=== PATIENT | female | born 1980 | race Caucasian/White ===

== ENCOUNTER → 2017-01-08 | Outpatient (CLI) | payer BC ==
--- NOTE | 2017-01-08 14:34 | RAD ---
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 Patient had seroma after surgery. She presents with brownish discharge from left nipple for last few days. COMPARISON: Mammograms from 2016, 2015 and 2013. This study was interpreted with the benefit of Computerized Aided Detection (CAD). FINDINGS: Breast Density: HETERO The breast parenchyma Is heterogeneiously dense, which could reduce sensitivity of mammography. Breast parenchyma level C. Retraction of bilateral nipples noted. Skin is within normal limits. Right breast: Stable architectural distortion is seen in the retroareolar region which is likely from surgical changes. Oval shaped lesions are seen in the anterior third of the breast. The union representative lesion measures 1.1 x 0.6 cm and is approximately 3 cm posterior to nipple on cc view. The margins are well-circumscribed. These were present on previous study from 09/23/2015. No suspicious calcifications. Left breast: There is a well-circumscribed measuring approximately mass in the retroareolar breast measuring 2.7 x 3.6 cm with obscured margins. There is area of architectural distortion superimposed on this lesion. Benign calcifications in the left breast. Redemonstrated is a well-circumscribed oval-shaped mass in the posterior third of the left breast approximately at 4:00 position measuring 1.2 x 0.7 cm and 11 cm from nipple on MLO view. This was evaluated with breast ultrasound on 09/27/2015 and was also seen on previous mammogram from 10/31/2013 suggesting benign etiology. No suspicious left breast calcifications. IMPRESSION: 1. Stable multiple nodules in the anterior third of the right breast with area of architectural distortion. Focused Ultrasound of the breast recommended. 2. Round mass in the retroareolar region of the left breast with superimposed architectural distortion. Focused Ultrasound of the breast recommended. BI-RADS CATEGORY: 0 INCOMPLETE: NEED ADDITIONAL IMAGING EVAULATION AND/OR PRIOR MAMMOGRAMS FOR COMPARISON RECOMMENDED FOLLOW-UP: ADD ADDITIONAL IMAGING PQRS compliance statement: Patient information was entered into a reminder system with a target due date for the next mammogram. Mammography is a sensitive method for finding small breast cancers, but it does not detect them all and is not a substitute for careful clinical examination. A negative mammogram does not negate a clinically suspicious finding and should not result in delay in biopsying a clinically suspicious abnormality. "Our facility is accredited by the [employer] Mammography [employer]." Ultrasound bilateral breasts. Indication: Abnormality seen on diagnostic bilateral breast mammogram Comparison: Mammogram from the same day. Left breast ultrasound from 09/27/2015. Findings: Right breast: Dilated ducts are seen at 11:00 position (images are incorrectly marked at 9:00) of the right breast with hypoechoic intraluminal well-circumscribed nodule measuring 0.3 x 0.5 cm. No internal vascularity is seen in this nodule. No spiculated mass seen. Left breast: There is a well-circumscribed cystic lesion with internal debris seen in the 12:00 position of the left breast measuring 2.5 x 2.0 x 2.6 cm with posterior acoustic enhancement. Multiple ducts are seen communicating with this cystic lesion. There is no tract seen opening to the skin. In the dependent portion of this cystic lesion there is a mural nodule measuring 1.0 x 0.8 x 0.9 cm without evidence of internal vascularity. Lobulated soft tissue is seen adherent to this cystic lesion demonstrating no internal vascularity. Mixed echogenicity debris is seen in the dilated ducts. Redemonstrated is a well-circumscribed hypoechoic nodule at 4:00 position approximately 12 cm from the nipple measuring 1.0 x 0.6 x 0.7 cm when compared to previous ultrasound from 09/27/2015 without internal vascularity. Another hypoechoic well-circumscribed cystic lesion is seen at 6:00 position approximately 5 cm from the nipple measuring 0.6 x 0.4 x 0.8 cm compatible with simple cyst. Impression: 1. Dilated right breast ducts with intraluminal nodule. This may represent intraductal papilloma. BI-RADS 4: Suspicious findings. Biopsy recommended. 2. Cystic mass in the left breast with well-defined mural nodule and nodular mural soft tissue with multiple dilated ducts opening into this lesion. BI-RADS 4: Suspicious findings. Cyst aspiration with biopsy of the mural nodule recommended. Findings were discussed with patient in person on 01/08/2017.
== END | disposition home or self-care (01) ==
LOC: MAMMO 10:46
PROVIDERS: ATTEND Radiology Radiation Oncology
DX: R92.1 Mammographic calcification found on diagnostic imaging of breast (principal); Z85.3 Personal history of malignant neoplasm of breast
CPT/HCPCS: 76641; G0204; 77066

== ENCOUNTER → 2018-01-07 | Outpatient (CLI) | payer BC ==
--- NOTE | 2018-01-07 14:10 | RAD ---
DATE: 01/07/2018 EXAM: DIGITAL DIAGNOSTIC BILATERAL HISTORY: Previous breast cancer COMPARISON: 01/08/2017 This study was interpreted with the benefit of Computerized Aided Detection (CAD). Breast Density: SCATTERED The breast parenchyma shows scattered fibroglandular densities. Breast parenchyma level B. FINDINGS: There is a complicated history of previous bilateral breast cancers with lumpectomies and radiation therapy. In the interval since 01/08/2017 there has also been percutaneous biopsies in the retroareolar regions bilaterally. New breast biopsy markers are evident in those regions. The biopsies reportedly demonstrated benign findings. Interval galactography and ultrasound demonstrated a cystic structure in the left retroareolar region. The current mammograms demonstrates persistent bilateral abnormal retroareolar densities with architectural distortion . This process on the left has decreased in size. On the right the retroareolar process is stable. No new or enlarging breast densities are seen. No suspicious microcalcifications have developed. IMPRESSION: 1. Stable mammograms as described above. Routine yearly mammographic follow-up is suggested. 2. Note is also made that probably benign left breast nodules were noted on an ultrasound exam from 09/02/2017. Six-month left sonographic follow-up on approximately 03/05/2018 is suggested. BI-RADS CATEGORY: 3 PROBABLY BENIGN FINDING(S)-SHORT INTERVAL FOLLOW-UP SUGGESTED PQRS compliance statement: Patient information was entered into a reminder system with a target due date for the next mammogram. Mammography is a sensitive method for finding small breast cancers, but it does not detect them all and is not a substitute for careful clinical examination. A negative mammogram does not negate a clinically suspicious finding and should not result in delay in biopsying a clinically suspicious abnormality. "Our facility is accredited by the [employer] Mammography [employer]."
== END | disposition home or self-care (01) ==
LOC: MAMMO 13:14
PROVIDERS: ATTEND Surgery
DX: N64.52 Nipple discharge (principal); Z86.000 Personal history of in-situ neoplasm of breast
CPT/HCPCS: 77066

== ENCOUNTER → 2018-03-09 | Outpatient (CLI) | payer BC ==
--- NOTE | 2018-03-09 14:54 | RAD ---
Left breast ultrasound, 03/09/2018: History: Follow-up breast nodules Comparison is made to a study from 01/08/2017. At the 6:00 retroareolar region there is a predominantly cystic lesion measuring 16 x 13 x 20 mm. There is echogenic nodularity and/or debris along its internal wall. This complicated cystic structure has not increased significantly in size since the previous study at which time it measured 18 x 12 x 21 mm. Reportedly this has been previously biopsied with benign results. At the 4:00 location approximately 10 cm from the nipple there is a small smooth hypoechoic nodule measuring 7 x 4 x 5 mm. And measured 6 x 5 x 9 mm on the previous study. It appears to have decreased slightly in size which would favor a benign etiology. At the 6:00 location approximate 6 cm in the nipple there is a 5 x 4 x 5 mm hypoechoic nodule. It has shown no significant change in size measuring 6 x 5 x 6 mm on the previous study. At the 6:00 location approximately 5 cm in the nipple there is a similar small 3 mm hypoechoic nodule which is unchanged since the previous study. IMPRESSION: Stable, probably benign left breast nodules as described above. Follow-up bilateral mammography and left breast ultrasound in 6 months is suggested. BI-RADS 3-probably benign findings
== END | disposition home or self-care (01) ==
LOC: US 13:51
PROVIDERS: ATTEND Surgery
DX: N63.23 Unspecified lump in the left breast, lower outer quadrant (principal)
CPT/HCPCS: 76641

== ENCOUNTER → 2018-09-12 | Outpatient (CLI) | payer BC ==
--- NOTE | 2018-09-12 15:34 | RAD ---
DATE: 09/12/2018 EXAM: DIGITAL DIAGNOSTIC BILATERAL, BREAST LEFT HISTORY: Breast cancer history COMPARISON: 01/07/2018 This study was interpreted with the benefit of Computerized Aided Detection (CAD). Breast Density: SCATTERED The breast parenchyma shows scattered fibroglandular densities. Breast parenchyma level B. FINDINGS: There is unchanged increased density and architectural distortion in the left retroareolar region and much less so on the right. A vague density projected over the right breast medially represents a skin lesion which should be followed clinically. No new or enlarging breast densities are seen. Biopsy markers are again noted in the retroareolar regions bilaterally. There are benign type calcifications in both breasts. No suspicious microcalcifications have developed. Left breast ultrasound, 09/12/2018: The left breast was carefully scanned in the areas of abnormality delineated on the 03/09/2018 exam. At the 6:00 retroareolar region there is a persistent complex mass measuring approximately 2.0 x 1.5 x 1.1 cm. It is of similar size when compared to the previous study. It is partially cystic with material of medium echogenicity along its internal marrero. This has reportedly been biopsied and yielded benign results. At the 4:00 location approximately 10 cm from the nipple there is a persistent smooth 7 mm hypoechoic nodule which is unchanged in size. At the 6:00 location approximately 6 cm from the nipple there is a 4-5 mm hypoechoic nodule which is unchanged. At the 6:00 location approximately 5 cm from the nipple there is a 3 mm hypoechoic nodule which is also unchanged. On today's study at the 6:00 location approximately 4.5 cm from the nipple there is an additional 8 x 5 x 2 mm elongated structure suggesting a complicated cyst or dilated ductal segment. No highly suspicious lesion warranting biopsy is identified. IMPRESSION: 1. Stable mammograms. 2. Probably benign left breast nodules as described above. Follow-up left breast ultrasound and bilateral mammography in 6 months is suggested. BI-RADS CATEGORY: 3 PROBABLY BENIGN FINDING(S)-SHORT INTERVAL FOLLOW-UP SUGGESTED RECOMMENDED FOLLOW-UP: 6M 6 MONTH FOLLOW-UP PQRS compliance statement: Patient information was entered into a reminder system with a target due date for the next mammogram. Mammography is a sensitive method for finding small breast cancers, but it does not detect them all and is not a substitute for careful clinical examination. A negative mammogram does not negate a clinically suspicious finding and should not result in delay in biopsying a clinically suspicious abnormality. "Our facility is accredited by the [employer] Mammography [employer]."
== END | disposition home or self-care (01) ==
LOC: MAMMO 13:03
PROVIDERS: ATTEND Surgery
DX: N63.24 Unspecified lump in the left breast, lower inner quadrant (principal); R92.1 Mammographic calcification found on diagnostic imaging of breast; Z85.3 Personal history of malignant neoplasm of breast
CPT/HCPCS: 76641; 77066

== ENCOUNTER → 2019-03-13 | Outpatient (CLI) | payer BC ==
--- NOTE | 2019-03-14 19:57 | RAD ---
DATE: 03/13/2018 EXAM: MAMMO CEDRIC CABRAL, BREAST LEFT HISTORY: Left breast cancer diagnosis. COMPARISON: 01/08/2017, 01/07/2018 and 09/12/2018 mammographic images This study was interpreted with the benefit of Computerized Aided Detection (CAD). Breast Density: HETERO The breast parenchyma is heterogenously dense, which could reduce sensitivity of mammography. Breast parenchyma level C. FINDINGS: Distortion in the left subareolar region with the biopsy clip marker is again seen and stable. Multiple small masses involving the breasts have remained stable. No new masses. No new distortion. No suspicious new calcification. Limited left breast ultrasound exam was performed. In the left subareolar region, there is a 1.9 cm x 1.7 cm x 1.3 cm cystic structure which has remained stable. At the 4:00 region 10 cm from nipple, there is a 0.4 cm x 0.4 cm 0.2 cm hypoechoic nodule. At the 6:00 region 6 entered from nipple, there is a 0.4 cm x 0.4 cm x 0.4 cm hypoechoic nodule. At the 6:00 region 5 cm from nipple, there is a 0.3 cm x 0.3 cm x 0.2 cm hypoechoic nodule. At the 6:00 region 5 cm from nipple, there is a 0.5 cm x 0.7 cm x 0.2 cm diameter hypoechoic nodule. IMPRESSION: Stable masses and subareolar complex cystic structure. BI-RADS CATEGORY: 3 PROBABLY BENIGN FINDING(S)-SHORT INTERVAL FOLLOW-UP SUGGESTED RECOMMENDED FOLLOW-UP: 6M 6 MONTH FOLLOW-UP. Six-month follow-up ultrasound exam of the left breast masses is recommended to assess continued stability. PQRS compliance statement: Patient information was entered into a reminder system with a target due date for the next mammogram. Mammography is a sensitive method for finding small breast cancers, but it does not detect them all and is not a substitute for careful clinical examination. A negative mammogram does not negate a clinically suspicious finding and should not result in delay in biopsying a clinically suspicious abnormality. "Our facility is accredited by the [employer] Mammography Program."
== END | disposition home or self-care (01) ==
LOC: MAMMO 13:52
PROVIDERS: ATTEND Surgery
DX: R92.8 Other abnormal and inconclusive findings on diagnostic imaging of breast (principal); N63.23 Unspecified lump in the left breast, lower outer quadrant; Z85.3 Personal history of malignant neoplasm of breast
CPT/HCPCS: 76641; 77066; G0279; 77062

== ENCOUNTER → 2019-09-15 | Outpatient (CLI) | payer BC ==
--- NOTE | 2019-09-15 13:57 | RAD ---
NECK SOFT TISSUE Clinical Indication: Reason: PAIN, NODULE, localized swelling, mass, and lump of neck. Patient is right ear infection. Comparison: None. TECHNIQUE: Real-time ultrasound imaging of the soft tissues of the right neck is performed. Findings: In the right lateral neck approximately 6 reactive appearing lymph nodes are identified. All but one of the lymph nodes demonstrate normal fatty felipe. The lymph node that does not definitely demonstrate a fatty felipe has short axis diameter of 5 mm. The lymph nodes demonstrate abnormal cortical thickening. The largest short axis diameter of the lymph nodes is 1 cm. IMPRESSION: There are reactive appearing lymph nodes in the right lateral neck. Recommend clinical follow-up with consideration for follow-up ultrasound in 3 months. Electronically signed by: Laz Ballesteros MD (09/15/2019 1:54 PM) [facility]
== END ==
LOC: US 12:52
PROVIDERS: ATTEND Family Medicine
DX: R22.1 Localized swelling, mass and lump, neck (principal)
CPT/HCPCS: 76536

== ENCOUNTER → 2019-11-06 | Outpatient (CLI) | payer BC ==
--- NOTE | 2019-11-06 17:23 | RAD ---
DATE: 11/06/2019 2:00 PM EXAM: MAMMO CEDRIC HARRISON CABRAL, BREAST RIGHT HISTORY: Short-term follow-up probably benign findings in both breasts. COMPARISON: Mammograms of 03/13/2019, 09/12/2018, 01/07/2018 and 01/08/2017 TECHNIQUE: Bilateral CC and MLO views of the breasts were performed. Bilateral breast tomosynthesis was performed in CC and MLO projections. This study was interpreted with the benefit of Computerized Aided Detection (CAD). Targeted ultrasound of the right axilla was then performed. FINDINGS: Breast Density: SCATTERED The breast parenchyma shows scattered fibroglandular densities. Breast parenchyma level B Stable subareolar left breast lumpectomy scar and S-shaped benign biopsy marker. Stable architectural distortion in the subareolar right breast compatible with previous right breast biopsy. No developing mass, suspicious calcifications or unexplained architectural distortion. A nodule in the right axilla showed interval increase in density and size and was therefore targeted for ultrasound at this visit. Targeted ultrasound of the right axilla identified an oval 1.5 cm mixed solid and cystic mass with some internal vascularity, abutting the skin surface at the approximate 10:00 position 14 cm from the nipple. With a BB marker over this sonographic finding, additional mammographic views confirm that it was indeed the mammographic finding near the right axilla which appear to have changed from prior years. At this visit, patient reported the patient's surgeon was aware of this area as it was superficial and palpable and had been monitoring it clinically for some time. Its superficial positioning and location immediately abutting the skin surface in the subcutaneous fat makes a skin lesion such as a sebaceous cyst favored. IMPRESSION: Benign findings on bilateral digital mammogram and targeted right breast/axillary ultrasound. BI-RADS CATEGORY: 2 BENIGN FINDING(S) RECOMMENDED FOLLOW-UP: 12M 12 MONTH FOLLOW-UP Annual screening mammography is recommended, unless clinically indicated sooner based on symptoms or change in physical exam. PQRS compliance statement: Patient information was entered into a reminder system with a target due date for the next mammogram. Mammography is a sensitive method for finding small breast cancers, but it does not detect them all and is not a substitute for careful clinical examination. A negative mammogram does not negate a clinically suspicious finding and should not result in delay in biopsying a clinically suspicious abnormality. "Our facility is accredited by the [employer] Mammography Program."
== END | disposition home or self-care (01) ==
LOC: MAMMO 13:46
PROVIDERS: ATTEND Surgery
DX: R92.2 Inconclusive mammogram (principal); N63.11 Unspecified lump in the right breast, upper outer quadrant
CPT/HCPCS: 76641; 77066; G0279; 77062

== ENCOUNTER → 2020-11-15 | Outpatient (CLI) | payer BC ==
--- NOTE | 2020-11-15 16:52 | RAD ---
EXAM: 1. BILATERAL DIGITAL 3-D DIAGNOSTIC MAMMOGRAPHY. 2. RIGHT BREAST ULTRASOUND. HISTORY: Personal history of bilateral DCIS status post breast conservation therapy. Routine surveill ance. TECHNIQUE: Bilateral full field digital images were obtained in CC and MLO projections. Computer-aide d detection was applied. COMPARISON: 11/06/2019, 03/13/2019, 09/12/2018. COMPOSITION: B. There are scattered areas of fibroglandular density. FINDINGS: On the right, post breast conservation therapy changes are noted in a subareolar distributi on. Along the lateral, superior aspect of the lumpectomy scar, a new nodule measures 9 mm. On today's sonography, this corresponds with a collection of dilated ducts. There appears to be an intraductal mass within one of these ducts at the 10:00 retroareolar position. This is similar echogenicity to gutierres rrounding fat, but appears intraductal on cine imaging. No clear internal perfusion is noted on Doppl er. Another circumscribed/obscured nodule is noted superolaterally mammographically. Sonographically, thi s corresponds with a hypoechoic nodule at the 9:00 position 9 cm from the nipple measuring 10 x 4 x 6 mm. This has microspiculations and is indeterminate. A lobulated mass is noted within the right axilla mammographically. Sonographically this corresponds with a cystic and solid mass with internal perfusion at the 11:00 position 10 cm from the nipple. It measures 17 x 7 x 10 mm. This has increased in size since the prior study and now has a cystic compon ent. Sonography of the right axilla reveals a lymph node with thickened cortex measuring 2.3 x 1.0 x 1.7 c m. This appears increased. Coarse calcifications at the right lumpectomy site appear benign. Scattered and coarse calcifications elsewhere on the right appear benign. On the left, post breast conservation therapy changes are noted in a retroareolar distribution. There is also a retroareolar postbiopsy clip. Coarse calcifications are benign. There is no suspicious int erval change on the left. BI-RADS CATEGORY 4: Suspicious Abnormality--Biopsy is suggested. RECOMMENDATION: 1. Ultrasound-guided biopsy of a 9 mm intraductal mass at the right 10:00 retroareolar position. 2. Ultrasound-guided biopsy of a 10 mm mass at the right 9:00 position 9 cm from the nipple. 3. Ultrasound-guided biopsy of a 17 mm complex cystic mass at the 11:00 position 10 cm from the nippl e. 4. Ultrasound-guided biopsy of an enlarged right axillary lymph node. Electronically signed by: Catie Amato MD (11/15/2020 4:50 PM) [id number]
== END ==
LOC: MAMMO 14:44
PROVIDERS: ATTEND Surgery
DX: N63.11 Unspecified lump in the right breast, upper outer quadrant (principal); R92.1 Mammographic calcification found on diagnostic imaging of breast; R92.8 Other abnormal and inconclusive findings on diagnostic imaging of breast; Z85.3 Personal history of malignant neoplasm of breast
CPT/HCPCS: 76642; 77066; G0279; 77062